=== PATIENT | female | born 1965 | race Caucasian/White ===

== ENCOUNTER 2017-03-17 12:56 | Emergency (ER) | payer MEDICAID ==
[~2017-03-17] VITALS: Ht 149.9 cm; Wt 77.1 kg
[2017-03-17 13:02] VITALS: BP 126/76
--- NOTE | 2017-03-17 14:30 | NUR ---
PT AMBULATED TO BED 7.
--- NOTE | 2017-03-17 14:32 | NUR ---
51F BIB LEFT EAR PAIN, ACHING, RADIATES TO LEFT THROAT, 5/10 X 3 DAYS; NO BLEEDING OR DRAINAGE NOTED TO SITE AT THIS TIME; PT STATES NO TRAUMA OR INJURY OR HEARING LOSS FROM EAR AT THIS TIME; PT AA&OX4, PERRLA, BL LUNG SOUNDS CLEAR, RR EVEN/UNLABORED, SKIN IS WARM/DRY/INTACT AT THIS TIME; PT STATES NO N/V/D AT THIS TIME; STEADY GAIT; PT RESTING IN BED WITH HOB ELEVATED AND IN LOWEST POSITION; POSITIONED FOR COMFORT; ER MD MADE AWARE OF STATUS. WILL CONTINUE TO MONITOR.
--- NOTE | 2017-03-17 14:37 | NUR ---
DEX ESPINOZA EVALUATING PT AT BEDSIDE.
--- NOTE | 2017-03-17 15:18 | NUR ---
Patient discharged with v/s stable. Written and verbal after care instructions given and explained. Patient alert, oriented and verbalized understanding of instructions. Ambulatory with steady gait. All questions addressed prior to discharge. ID band removed. Patient advised to follow up with PMD. Rx of PERMETHRIN 5% TOPICAL CREAM AND PERMETHRIN 1% TOPICAL LOTION given. Patient educated on indication of medication including possible reaction and side effects. Opportunity to ask questions provided and answered.
[2017-03-17 15:19] VITALS: BP 133/85
== END 2017-03-17 15:18 | disposition home or self-care (01) ==
LOC: MED 12:56
DX: L29.9 Pruritus, unspecified (principal); H92.02 Otalgia, left ear
CPT/HCPCS: 99282

== ENCOUNTER 2017-04-11 23:15 | Emergency (ER) | payer MEDICAID ==
[~2017-04-11] VITALS: Ht 149.9 cm; Wt 79.8 kg
[2017-04-11 23:17] VITALS: BP 160/100
--- NOTE | 2017-04-11 23:47 | NUR ---
PATIENT PRESENTS TO ED WITH C/O RASH OF UNKNOWN ORIGIN X 3 DAYS THROUGHOUT BODY WITH NO COMPLAINT OF SOB. PT DENIES N/V/D; AAOX4 WITH EVEN AND STEADY GAIT; LUNGS CLEAR BL; HR EVEN AND REGULAR; PT DENIES ANY FEVER, CP, SOB, OR COUGH AT THIS TIME; PATIENT STATES PAIN OF 0/10 AT THIS TIME; VSS; PATIENT POSITIONED FOR COMFORT; HOB ELEVATED; BEDRAILS UP X2; BED DOWN. ER MD MADE AWARE OF PT STATUS.
--- NOTE | 2017-04-12 00:06 | NUR ---
Patient discharged with v/s stable. Written and verbal after care instructions given and explained. Patient alert, oriented and verbalized understanding of instructions. Ambulatory with steady gait. All questions addressed prior to discharge. ID band removed. Patient advised to follow up with PMD. Rx of PERMETHRIN 5% CRM, ATARAX 50MG given. Patient educated on indication of medication including possible reaction and side effects. Opportunity to ask questions provided and answered.
[2017-04-12 00:07] VITALS: BP 146/99
== END 2017-04-12 00:09 | disposition home or self-care (01) ==
LOC: MED 23:15
DX: R21 Rash and other nonspecific skin eruption (principal); R03.0 Elevated blood-pressure reading, without diagnosis of hypertension
CPT/HCPCS: 99283